=== PATIENT | female | born 2000 | race Caucasian/White ===

== ENCOUNTER 2022-01-18 13:29 | Emergency (ER) | payer OTHER, SELFPAY ==
[2022-01-18 13:34] VITALS: BP 158/97; PULSE 85; RESP 18; TEMP 36.7; O2SAT 98; BMI 28.1
[2022-01-18 15:28] LABS: Add Manual Diff / Slide Review NO; Basophils Absolute Auto 100 /uL (0-100); Basophils Percent Auto 0.5 % (0-2); Eosinophils Absolute Auto 100 /uL (0-450); Eosinophils Percent Auto 0.6 % (2-4); Hematocrit 38.2 % (36-46); Hemoglobin 13.3 g/dL (12.0-16.0); Lymphocytes Absolute Auto 2400 /uL (1100-4500); Mean Corpuscular HGB Conc 34.9 % (30-36); Mean Corpuscular Volume 91.6 fL (80-100); Monocytes Absolute Auto 600 /uL (0-900); Monocytes Percent Auto 5.9 % (3-14); Neutrophils Absolute Auto 7300 /uL (1500-7000); Platelet Count 263 X10^3/uL (150-400); Red Blood Cell Count 4.17 X10^6/uL (4.0-5.2); Red Cell Distribution Width 12.6 % (11.6-14.8); White Blood Cell Count 10.4 X10^3/uL (4.5-11.0)
[2022-01-18 15:38] LABS: Alanine Aminotransferase 19 IU/L (<35); Albumin 4.4 g/dL (3.5-5.0); Albumin Globulin Ratio 1.3 (1.0-2.8); Alkaline Phosphatase 72 U/L (38-126); Aspartate Aminotransferase 27 IU/L (14-36); BUN Creatinine Ratio 11.1 (6-22); Bilirubin Total 0.4 mg/dL (0.2-1.3); Blood Urea Nitrogen 8 mg/dL (7-17); Carbon Dioxide 24 mmol/L (22-32); Chloride 105 mmol/L (98-107); Estimated Glomerular Filt Rate > 60 mL/min (>60); Globulin 3.4 g/dL (1.7-4.1); Glucose 98 mg/dL (70-100); HEMOLYSIS < 15 (0-50); Lipase 91 U/L (23-300); Potassium 3.8 mmol/L (3.4-5.1); Sodium 139 mmol/L (137-145); Total Protein 7.8 g/dL (6.3-8.2)
--- NOTE | 2022-01-18 15:43 | DI.US.S_ITS ---
PROCEDURE: US PELVIC COMPLETE INDICATIONS: RLQ PAIN TECHNIQUE: Real-time scanning was performed of the pelvic organs, with image documentation. Additional endovaginal scanning was necessary due to incomplete visualization of the adnexal and endometrial structures by transabdominal scanning. COMPARISON: None. FINDINGS: Uterus: Uterus is anteverted and normal in size at 7.7 x 3.5 x 4.6 cm. The myometrium is homogeneous. The endometrium measures 12 mm combined thickness. Ovaries: The right ovary measures 6.2 x 3.7 x 6.5 cm, with a calculated ovarian volume of 77.3 cc. The left ovary measures 2.6 x 2.3 x 1.5 cm, with a calculated ovarian volume of 4.7 cc. A 5.6 x 3.9 x 5.4 simple cyst is seen in the right ovary. Doppler evaluation demonstrates normal vascularity in both ovaries. Other: No pathologic free abdominal or pelvic fluid. IMPRESSION: Right ovary is enlarged by a 5.6 cm simple cyst. No sonographic signs of ovarian torsion. We strive to produce accurate, complete, and clear reports of imaging services. To assist us in improving patient care, this report was composed using standard report templates and voice recognition software. Therefore, it may contain abnormal punctuation, insertions and/or omissions. Occasional wrong-word or sound-alike substitutions may occur. Though we review the report and make efforts to correct it, we do recommend that the report be read carefully in proper context to recognize any text inaccuracies. Dictated by: Buster Figueroa M.D. on 01/18/2022 at 16:09 Approved by: Buster Figueroa M.D. on 01/18/2022 at 16:11
[2022-01-18] MEDS: KETOROLAC 30 MG/ML VIAL 15 MG IV (16:06)
--- NOTE | 2022-01-18 17:24 | ED_ITS ---
HPI - Abdominal Pain General Chief Complaint: Abdominal Pain Stated Complaint: Right side abd pain Time Seen by Provider: 01/18/22 13:50 Source: patient Mode of arrival: Ambulatory Limitations: no limitations History of Present Illness HPI narrative: This is a 21-year-old female prior history of appendectomy who is had a week of right-sided abdominal pain which has been persistent and slowly worsening. Patient denies fevers or chills. She is had some nausea and pain quite intense but no vomiting. Patient does not state that pain really waxes and wanes it has been more constant. She denies diarrhea, constipation or black or bloody stools. She is had some mild dysuria at times but no frequency, urgency or hematuria. She denies any back or flank pain. Patient denies any new vaginal bleeding or discharge states she is had normal periods with her last menstrual period being around the 19th. Patient denies any new vaginal discharge. Patient states she is had some GI issues is supposed to follow up with Gastroenterology but has not put this in place because she moved recently. She states codeine gives her anaphylaxis but she thinks that she is had narcotics which she was younger and had her appendix out that she tolerated those. Patient denies surgeries besides appendectomy. Related Data Previous Rx's Medication Instructions Recorded hydrocodone 5 mg-acetaminophen 325 1 tab PO QID PRN pain #10 tabs 01/18/22 mg tablet Allergies Allergy/AdvReac Type Severity Reaction Status Date / Time amoxicillin Allergy Verified 01/18/22 13:38 azithromycin [From Zithromax] Allergy Verified 01/18/22 13:38 codeine Allergy Anaphylaxis Verified 01/18/22 16:04 Review of Systems Review of Systems ROS Unobtainable: All systems reviewed & are unremarkable except as noted in HPI and below Exam Narrative Exam Narrative: GENERAL: Alert and oriented x three, female in mild distress. HEENT: Head normocephalic, atraumatic, EOMI, pupils reactive, face symmetric, moist mucous membranes NECK: Supple, full range of motion CARDIOVASCULAR: Regular rate and rhythm without murmurs, rubs or gallops. RESPIRATORY: Breath sounds equal bilaterally, no wheezes rales or rhonchi. ABDOMEN: Soft, positive for right lower quadrant tenderness. Normoactive bowel sounds all 4 quadrants. No guarding or rebound, rigidity, no mass : No CVA tenderness EXTREMITIES: Normal range of motion, no clubbing or edema. Neurovascularly intact NEUROLOGICAL: Cranial nerves II through XII grossly intact. Moving all extremities SKIN: Warm, dry, no petechiae, no rashes or lesions. Initial Vital Signs Initial Vital Signs: Vital Signs Temperature 98.1 F 01/18/22 13:34 Pulse Rate 85 01/18/22 13:34 Respiratory Rate 18 01/18/22 13:34 Blood Pressure 158/97 H 01/18/22 13:34 Pulse Oximetry 98 01/18/22 13:34 Oxygen Delivery Method 01/18/22 13:34 Course Orders Ordered: ED Orders 01/18/22 15:15 CBC Auto Diff [Complete Blood Count AUTO DIFF] Stat CMP [Comprehensive Metabolic Panel] Stat Lipase Stat 01/18/22 15:43 US pelvic complete Stat Discontinued Medications Ketorolac Tromethamine (Ketorolac 30 Mg/Ml Vial) 15 mg IV NOW ONE Stop: 01/18/22 15:50 Last Admin: 01/18/22 16:06 Dose: 15 mg Documented By: JACQUE Morphine Sulfate (Morphine 4 Mg/Ml Inj) 4 mg IV NOW ONE Stop: 01/18/22 17:49 Last Admin: 01/18/22 17:57 Dose: 4 mg Documented By: JACQUE Ondansetron HCl (Ondansetron 4 Mg/2 Ml Inj) 4 mg IV NOW ONE Stop: 01/18/22 17:49 Last Admin: 01/18/22 17:58 Dose: 4 mg Documented By: JACQUE Vital Signs Vital signs: Vital Signs - 8 hr 01/18/22 13:34 01/18/22 18:11 Temperature 98.1 F Pulse Rate 85 79 Respiratory Rate 18 18 Blood Pressure 158/97 H 140/60 Pulse Oximetry 98 100 Oxygen Delivery Method Room Air Room Air MDM - Abdominal Pain Lab Data Result diagrams: 01/18/22 15:15 01/18/22 15:15 Labs: Lab Results 01/18/22 01/18/22 Range/Units 15:15 15:15 WBC 10.4 (4.5-11.0) X10^3/uL RBC 4.17 (4.0-5.2) X10^6/uL Hgb 13.3 (12.0-16.0) g/dL Hct 38.2 (36-46) % MCV 91.6 (80-100) fL MCH 32.0 (26-34) PG MCHC 34.9 (30-36) % RDW 12.6 (11.6-14.8) % Plt Count 263 (150-400) X10^3/uL Neut % (Auto) 70.0 (50-75) % Lymph % (Auto) 23.0 L (25-40) % [place] % (Auto) 5.9 (3-14) % Eos % (Auto) 0.6 L (2-4) % Baso % (Auto) 0.5 (0-2) % Neut # (Auto) 7300 H (8634-1177) /uL Lymph # (Auto) 2400 (3283-4773) /uL [place] # (Auto) 600 (0-900) /uL Eos # (Auto) 100 (0-450) /uL Baso # (Auto) 100 (0-100) /uL Sodium 139 (137-145) mmol/L Potassium 3.8 (3.4-5.1) mmol/L Chloride 105 (98-107) mmol/L Carbon Dioxide 24 (22-32) mmol/L BUN 8 (7-17) mg/dL Creatinine 0.72 (0.52-1.04) mg/dL Estimated GFR > 60 (>60) mL/min BUN/Creatinine Ratio 11.1 (6-22) Glucose 98 (70-100) mg/dL Calcium 9.0 (8.4-10.2) mg/dL Total Bilirubin 0.4 (0.2-1.3) mg/dL AST 27 (14-36) IU/L ALT 19 (<35) IU/L Alkaline Phosphatase 72 (38-126) U/L Total Protein 7.8 (6.3-8.2) g/dL Albumin 4.4 (3.5-5.0) g/dL Globulin 3.4 (1.7-4.1) g/dL Albumin/Globulin Ratio 1.3 (1.0-2.8) Lipase 91 (23-300) U/L Point of care testing: Point of Care Testing Test Results Negative Urine Dip Bedside Urine Glucose Negative Bedside Urine Bilirubin - Negative Bedside Urine Ketone - Negative Urine Specific [place] 1.010 Bedside Urine Occult Blood - Negative Bedside Urine pH 7.0 Bedside Urine Protein - Negative Bedside Urine Urobilinogen - Negative Bedside Urine Nitrite - Negative Bedside Urine Leukocytes - Negative Esterase Imaging Data US - CORRECTIONAL COUNSELOR/CASE MANAGER: Radiologist's Impression: Jossie Gomez??21??F??2000 ? Allergy/Adv: amoxicillin, azithromycin, codeine (More??) Close Pelvis Ultrasound (Signed) Buster Figueroa - 01/18/22 [address]?[place] [address] Ultrasound Report Signed Patient: Jossie Gomez MR#: [id number] : 2000 Acct:[id number] Age/Sex: 21 / F Date of Service: 01/18/22 Loc: ED Accession Number: [id number] ?? Procedure: US pelvic complete Ordering Provider: Candelaria Meeks D.O. PROCEDURE:? US PELVIC COMPLETE ? INDICATIONS:? RLQ PAIN ? TECHNIQUE:? Real-time scanning was performed of the pelvic organs, with image documentation.? Additional endovaginal scanning was necessary due to incomplete visualization of the adnexal and endometrial structures by transabdominal scanning.? ? COMPARISON:? None. ? FINDINGS:? ?? Uterus:? Uterus is anteverted and normal in size at 7.7 x 3.5 x 4.6 cm. The myometrium is homogeneous. ? The endometrium measures 12 mm combined thickness.? ? Ovaries:? The right ovary measures 6.2 x 3.7 x 6.5 cm, with a calculated ovarian volume of 77.3 cc. The left ovary measures 2.6 x 2.3 x 1.5 cm, with a calculated ovarian volume of 4.7 cc.? A 5.6 x 3.9 x 5.4 simple cyst is seen in the right ovary.? Doppler evaluation demonstrates normal vascularity in both ovaries.? ? Other:? No pathologic free abdominal or pelvic fluid. ? IMPRESSION:? Right ovary is enlarged by a 5.6 cm simple cyst.? No sonographic signs of ovarian torsion. ? We strive to produce accurate, complete, and clear reports of imaging services. To assist us in improving patient care, this report was composed using standard report templates and voice recognition software. Therefore, it may contain abnormal punctuation, insertions and/or omissions. Occasional wrong-word or sound-alike substitutions may occur. Though we review the report and make efforts to correct it, we do recommend that the report be read carefully in proper context to recognize any text inaccuracies. ? ? Dictated by: Buster Figueroa M.D. on 01/18/2022 at 16:09 ? ? Approved by: Buster Figueroa M.D. on 01/18/2022 at 16:11?? MDM Narrative Medical decision making narrative: This is a 21-year-old female with complaint of right lower quadrant pain that has been a week in place. Patient has had her appendix out, she has reassuring labs, no other significant changes since low suspicion for PID with pelvic ultr asound shows a 5.6 cm right ovarian cyst likely the source for pain no obvious signs torsion. Patient is comfortable but does not appear to have acute abdomen or make me more suspicion for torsion or abscess. Discussed with patient return precautions. Seen for follow-up even if her pain resolves, was given referral for OBGYN as well as specific return precautions for torsion type symptoms. Discharge Plan Departure Patient Disposition: Home Clinical Impression: Ovarian cyst Instructions: DI for Ovarian Cyst Activity Restrictions/Additional Instructions: Please follow-up with OBGYN you have a right ovarian cyst that is likely causing your pain today. Call to set up follow-up on Wednesday. These can sometimes cause ovarian torsions so please return if you are having rapidly worsening symptoms. You may take ibuprofen up to 600 mg every 6 hours as needed You may also take [place] 1-2 tablets every 6 hours as needed for pain Prescription sent to [facility] in [place] Please return for fevers, rapidly worsening pain, vomiting, lightheadedness or passing out, black or bloody stools, difficulty with urination or other new or concerning symptoms. Prescriptions: New hydrocodone-acetaminophen 5-325 mg tablet 1 tab PO QID PRN (Reason: pain) Qty: 10 0RF Stand Alone Forms: Work Release Note Visit Report Forms: Patient Portal/API
[2022-01-18] MEDS: MORPHINE 4 MG/ML INJ IV (17:57)
[2022-01-18] MEDS: ONDANSETRON 4 MG/2 ML INJ IV (17:58)
[2022-01-18 18:11] VITALS: BP 140/60; PULSE 79; RESP 18; O2SAT 100
== END 2022-01-18 18:12 | disposition home or self-care (01) ==
PROVIDERS: Emergency Provider Emergency Medicine
DX: N83.201 Unspecified ovarian cyst, right side (principal); R30.0 Dysuria
CPT/HCPCS: 76830; 76856; 80053; 81003; 81025; 83690; 85025; 93975; 96374; 96375; 99283; 99284; J1885; J2270; J2405

== ENCOUNTER 2022-06-09 20:31 | Emergency (ER) | payer OTHER, SELFPAY ==
[2022-06-09 20:34] VITALS: BP 121/78; PULSE 93; RESP 18; TEMP 37.1; O2SAT 98; BMI 28.1
--- NOTE | 2022-06-09 21:33 | ED_ITS ---
HPI - Fever General Chief Complaint: Fever Stated Complaint: fever, weakness, headache Time Seen by Provider: 06/09/22 21:01 Source: patient Mode of arrival: Ambulatory History of Present Illness HPI Narrative: 21-year-old female former smoker with history of migraines and GERD presents with her significant other and a chief complaint of 3 days of fever, mild headache, runny nose nasal congestion, sore throat and dry hacking cough. She generally feels unwell. 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 She denies any chest pain or shortness of breath. She has no abdominal pain, constipation or diarrhea. She denies any dysuria, frequency or urgency. She has no neck pain. Her headache is generalized and without obvious provocation or palliation. She denies blur red vision, trouble speech and significant other suggest against any altered mental status Related Data Previous Rx's Medication Instructions Recorded drospirenone 3 mg-ethinyl 1 tab PO DAILY #84 tabs 03/04/22 estradiol 0.03 mg tablet naproxen 500 mg tablet 500 mg PO Q8H PRN pain #30 tabs 03/04/22 trazodone 50 mg tablet 25 - 50 mg PO BEDTIME PRN insomnia 03/16/22 #30 tabs sertraline 100 mg tablet (Zoloft) 100 mg PO DAILY #90 tabs 04/13/22 benzonatate 200 mg capsule 200 mg PO BID PRN cough #20 caps 06/09/22 ondansetron 4 mg disintegrating 4 mg PO TID-QID PRN nausea and 06/09/22 tablet vomiting #10 tabs Allergies Allergy/AdvReac Type Severity Reaction Status Date / Time amoxicillin Allergy Verified 06/03/22 14:45 azithromycin [From Zithromax] Allergy Verified 06/03/22 14:45 codeine Allergy Anaphylaxis Verified 06/03/22 14:45 Review of Systems Review of Systems Narrative: GENERAL: See HPI HEENT: See HPI RESPIRATORY: See HPI CARDIOVASCULAR: Denies chest pain, palpitations, orthopnea, edema, GASTROINTESTINAL: See HPI : Denies dysuria, frequency, incontinence, hematuria, urinary retention. MUSCULOSKELETAL: denies weakness, joint pain, or bony pain SKIN: Denies rash, skin lesions, or other NEUROLOGIC: See HPI PSYCHIATRIC: No concerning psychosocial issues. 12 point review of systems is negative except for those stated above Patient History Medical History Acne Allergies Carpal tunnel syndrome Chronic back pain Depression (~2018) BRADY (generalized anxiety disorder) (~2019) GERD (gastroesophageal reflux disease) Headache (~2015) Hearing loss Insomnia Migraines (~2015) Nicotine vapor product user Scoliosis (~2012) Vision disorder Surgical History Anesthesia H/O left wrist surgery (~2018) History of appendectomy (~04/2017) Family History Father Diabetes mellitus Mother Mental health problem Brother Mental health problem Grandfather Cancer COPD (chronic obstructive pulmonary disease) Grandmother Hypertension COPD (chronic obstructive pulmonary disease) Social History Smoking Status: Former smoker Smoking Status: Former smoker Substance Use Type: marijuana Exam Narrative Exam Narrative: GENERAL: [21] year old patient appears stated age. Well-developed patient, in mild distress. HEAD: Atraumatic. Normocephalic. EYES: Pupils equal round and reactive. Extraocular motions intact. No scleral icterus. No injection or drainage. ENT: Nose without bleeding, purulent drainage. Throat without erythema, tonsillar hypertrophy or exudate. Airway patent. NECK: Trachea midline. Non tender, no meningeal signs CARDIOVASCULAR: Regular rate and rhythm without murmurs, gallops, or rubs. RESPIRATORY: Clear to auscultation. Breath sounds equal bilaterally. No wheezes, rales, or rhonchi. No signs of respiratory distress such as tachypnea, hypoxemia or use of accessory muscles GASTROINTESTINAL: Abdomen soft, non-tender, nondistended. EXTREMITIES: No edema or joint tenderness. BACK: Nontender without deformity or crepitance. No flank tenderness. NEURO: AOx3. SKIN: No rash or erythema of visible areas Initial Vital Signs Initial Vital Signs: Vital Signs Temperature 98.8 F 06/09/22 20:34 Pulse Rate 93 H 06/09/22 20:34 Respiratory Rate 18 06/09/22 20:34 Blood Pressure 121/78 06/09/22 20:34 Pulse Oximetry 98 06/09/22 20:34 Oxygen Delivery Method 06/09/22 20:34 Course Orders Ordered: ED Orders 06/09/22 20:43 Covid-19 + FLU A/B + RSV - PCR Stat Discontinued Medications Ondansetron HCl (Ondansetron 4 Mg Odt Prepack) 1 bottle MISC SEEINSTR ONE Stop: 06/09/22 22:03 Last Admin: 06/09/22 22:15 Dose: 1 bottle Documented By: SRIDHAR Vital Signs Vital signs: Vital Signs - 8 hr 06/09/22 20:34 06/09/22 22:17 Temperature 98.8 F 98.3 F Pulse Rate 93 H 72 Respiratory Rate 18 16 Blood Pressure 121/78 118/66 Pulse Oximetry 98 99 Oxygen Delivery Method Room Air Room Air MDM - Fever Lab Data Labs: Lab Results 06/09/22 Range/Units 20:43 SARS-CoV-2 (PCR) Positive H (Negative) Influenza A (RT-PCR) Flu a negative (NEGATIVE) Influenza B (RT-PCR) Flu b negative (NEGATIVE) RSV (PCR) Negative (Negative) MDM Narrative Medical decision making narrative: [21-year-old female former smoker with various symptoms including subjective fever, mild headache, sore throat, nasal congestion and dry cough] Multiple etiologies for patient's symptoms considered including, but not limited to: [Flu, COVID versus other] Prior Charts reviewed: Multiple prior notes available in our EMR Labs reviewed and interpreted by myself: Respiratory swab positive for COVID Patient with multiple upper respiratory type symptoms in the absence of sepsis, severe respiratory distress had positive COVID test Findings and discharge diagnosis discussed with patient/family followed by verbalization of understanding Return precautions discussed with patient/family whom verbalize understanding of diagnosis and plan Discharge Plan Departure Patient Disposition: Home Clinical Impression: COVID-19 Instructions: COVID-19 Activity Restrictions/Additional Instructions: *You have been diagnosed with [ COVID-19] *What to do: ?* per recommendations from the CDC and the [facility] Department of Health ?* stay home except to get medical care. ?Restrict activities outside your home, except for getting medical care. ?Do not go to work, school, or public areas. ?Avoid using public transportation, ride sharing, or taxis. ?* separate yourself from other people in your home. ?* call ahead before visiting your doctor ?* Wear a facemask ?* Cover your coughs and sneezes ?* Clean your hands often ?* Avoid sharing household items ?* Clean all high-touch services every day ?* Monitor your symptoms and seek prompt medical attention if your illness is worsening, particularly with difficulty in breathing. You may discontinue your isolation when: ?1. You have been fever-free for at least 24 hours without the use of fever reducing medication, AND ?2. Your symptoms are getting better, AND ?3. At least 5 days have passed since symptoms first appeared ?4. If you have fever, continue to stay home until fever resolves Individuals with laboratory confirmed COVID-19 who have not had any symptoms may discontinue home isolation when at least 5 days have passed since the date of their first COVID-19 diagnostic test and have had no subsequent illness You should notifiy any friends and family that have been in close contact *If up to date on COVID Vaccines, then they do not need to quarantine unless symptoms develop. Get tested on day 5 (or sooner if symptoms develop). Take precautions and watch for symptoms until day 10 *If NOT up to date on COVID Vaccines, then CDC recommends quarantine for at least 5 full days. Wear a well fitted mask at home if you must be around others. If they ?develop symptoms they should get tested. If they remain asymptomatic they should get tested on day 5. They should take precautions and monitor for symptoms until day 10. Prescriptions: New benzonatate 200 mg capsule 200 mg PO BID PRN (Reason: cough) Qty: 20 0RF ondansetron 4 mg tablet,disintegrating 4 mg PO TID-QID PRN (Reason: nausea and vomiting) Qty: 10 0RF No Action naproxen 500 mg tablet 500 mg PO Q8H PRN (Reason: pain) Qty: 30 12RF Rx Instructions: For best effect, start medication 1-2 days prior to expected onset of period drospirenone-ethinyl estradiol 3-0.03 mg tablet 1 tab PO DAILY Qty: 84 4RF Rx Instructions: Take one tab daily from top three rows, then discard bottom row and start a new pack of pills every 3 weeks. sertraline [Zoloft] 100 mg tablet 100 mg PO DAILY Qty: 90 3RF trazodone 50 mg tablet 25 - 50 mg PO BEDTIME PRN (Reason: insomnia) Qty: 30 11RF Referrals: Yolanda Louis DO [Primary Care Provider] - Stand Alone Forms: Patient Portal/API
[2022-06-09 21:44] LABS: Influenza A - CEPHEID Flu A NEGATIVE (NEGATIVE); Influenza B - CEPHEID Flu B NEGATIVE (NEGATIVE); Respiratory Syncytial Virus Negative (Negative)
[2022-06-09 21:53] LABS: COVID-19 CEPHEID 4-PLEX PCR POSITIVE (Negative)
[2022-06-09] MEDS: ONDANSETRON 4 MG ODT PREPACK 1 BOTTLE MISC (22:15)
[2022-06-09 22:17] VITALS: BP 118/66; PULSE 72; RESP 16; TEMP 36.8; O2SAT 99
== END 2022-06-09 22:15 | disposition home or self-care (01) ==
PROVIDERS: Emergency Provider Emergency Medicine; PCP Family Medicine
DX: U07.1 COVID-19 (principal)
CPT/HCPCS: 0241U; 99281; 99282